=== PATIENT | male | born 1970 | race Two or more races ===

== ENCOUNTER 2024-09-17 16:28 | Emergency (ER) | payer OTHER ==
[~2024-09-17] VITALS: Ht 175.3 cm; Wt 103.6 kg
[2024-09-17 16:32] VITALS: BP 168/104; PULSE 90; RESP 18; TEMP 97.4; O2SAT 100
[2024-09-17] MEDS ORDERED: CIPR10DR LEFT EAR (17:51)
[2024-09-17] MEDS ORDERED: AMOX-101 PO (17:51)
== END 2024-09-17 18:07 | disposition home or self-care (01) ==
LOC: ER 16:29
DX: H60.92 Unspecified otitis externa, left ear (principal); H66.92 Otitis media, unspecified, left ear
CPT/HCPCS: 99283